=== PATIENT | female | born 1945 | race Caucasian/White ===

== ENCOUNTER 2018-01-07 16:56 | Emergency (ER) | payer MEDICARE, OTHER ==
[~2018-01-07] VITALS: Ht 160 cm; Wt 82.0 kg
[2018-01-07] MEDS ORDERED: diphenhydrAMINE 50 mg/ml inj IV ONE (17:35)
[2018-01-07] MEDS ORDERED: methylPREDNISolone sod succ 125mg/2ml vial IV ONE (17:35)
[2018-01-07 17:56] VITALS: BP 121/68
[2018-01-07 17:58] LABS: BASOPHILS % (AUTO) 0.5 % (0-1); EOSINOPHILS # (AUTO) 0.2 X10'3 (0-0.9); EOSINOPHILS % (AUTO) 3.8 % (0-6); HEMATOCRIT 38.5 % (35.0-45.0); HEMOGLOBIN 13.2 g/dl (12.0-16.0); LYMPHOCYTES # (AUTO) 1.9 X10'3 (1.1-4.8); LYMPHOCYTES % (AUTO) 29.9 % (21-51); MEAN CORPUSCULAR HEMOGLOBIN 31.8 PG (27.0-31.0); MEAN CORPUSCULAR HGB CONC 34.2 % (33.0-36.5); MEAN CORPUSCULAR VOLUME 92.8 FL (78-98); MEAN PLATELET VOLUME 9.2 FL (7.4-10.4); MONOCYTES # (AUTO) 0.5 X10'3 (0-0.9); MONOCYTES % (AUTO) 7.1 % (2-12); NEUTROPHILS # (AUTO) 3.8 X10'3 (1.8-7.7); NEUTROPHILS % (AUTO) 58.7 % (42-75); PLATELET COUNT 182 X10'3 (140-440); RED BLOOD COUNT 4.15 X10'6 (4.20-5.60); RED CELL DISTRIBUTION WIDTH 14.9 % (11.5-14.5); WHITE BLOOD COUNT 6.4 X10'3 (4.5-11.0)
[2018-01-07 18:08] LABS: ALANINE AMINOTRANSFERASE 50 U/L (12-78); ALBUMIN 3.3 G/DL (3.4-5.0); ALBUMIN/GLOBULIN RATIO 0.9 (1.1-1.5); ALKALINE PHOSPHATASE 57 IU/L (46-116); ANION GAP 10 (8-16); ASPARTATE AMINO TRANSFERASE 26 U/L (10-37); BILIRUBIN,TOTAL 0.2 MG/DL (0.1-1.0); BLOOD UREA NITROGEN 16 MG/DL (7-18); BUN/CREATININE RATIO 21.3 (6.6-38.0); CALCIUM 9.5 MG/DL (8.5-10.1); CHLORIDE 105 MMOL/L (99-107); CREATININE 0.75 MG/DL (0.40-0.90); GLUCOSE 88 MG/DL (70-104); POTASSIUM 3.8 MMOL/L (3.5-5.1); SODIUM 138 MMOL/L (135-145); TOTAL CARBON DIOXIDE 23.5 MMOL/L (24-32); TOTAL PROTEIN 6.9 G/DL (6.4-8.2); eGFR 76 ML/MIN
[2018-01-07] MEDS ORDERED: PRED10TA PO (19:12)
[2018-01-07] MEDS ORDERED: DIPH-423 PO (19:13)
== END 2018-01-07 19:28 | disposition home or self-care (01) ==
LOC: ER 16:57
DX: T78.40XA Allergy, unspecified, initial encounter (principal); I10 Essential (primary) hypertension; R06.02 Shortness of breath; R13.10 Dysphagia, unspecified; Z88.0 Allergy status to penicillin; Z79.899 Other long term (current) drug therapy; Z90.710 Acquired absence of both cervix and uterus; Z90.89 Acquired absence of other organs; X58.XXXA Exposure to other specified factors, initial encounter
CPT/HCPCS: 36415; 71045; 80053; 85025; 93005; 96374; 96375; 99285; J1200; J2930

== ENCOUNTER 2020-05-11 16:40 | Emergency (ER) | payer MEDICARE, OTHER ==
[~2020-05-11] VITALS: Ht 162.6 cm; Wt 79.0 kg
[~2020-05-11 16:40] MED LIST: DIPH-423 PO; PRED10TA PO
[2020-05-11] MEDS ORDERED: ondansetron 4mg rapidly disintigrating tab PO ONE (17:35)
[2020-05-11] MEDS ORDERED: HYDROcodone/acetaminophen 5mg/325mg tablet PO ONE (17:35)
[2020-05-11] MEDS ORDERED: ONDA4TAB6 PO (17:36)
[2020-05-11] MEDS ORDERED: HYDR-4383 PO (17:36)
[2020-05-11 18:04] VITALS: BP 113/41
== END 2020-05-11 18:10 | disposition home or self-care (01) ==
LOC: ER 16:41
DX: S82.832A Other fracture of upper and lower end of left fibula, initial encounter for closed fracture (principal); M25.572 Pain in left ankle and joints of left foot; I10 Essential (primary) hypertension; F32.9 Major depressive disorder, single episode, unspecified; Z90.710 Acquired absence of both cervix and uterus; Z90.89 Acquired absence of other organs; Z88.0 Allergy status to penicillin; Z88.8 Allergy status to other drugs, medicaments and biological substances; Z79.899 Other long term (current) drug therapy; X58.XXXA Exposure to other specified factors, initial encounter; Y93.89 Activity, other specified; Y92.89 Other specified places as the place of occurrence of the external cause; Y99.8 Other external cause status
CPT/HCPCS: 29515; 73610; 99283

== ENCOUNTER 2020-11-28 10:10 | Emergency (ER) | payer MEDICARE, OTHER ==
[~2020-11-28] VITALS: Ht 162.6 cm; Wt 76.7 kg
[~2020-11-28 10:10] MED LIST changes: +HYDR-4383 PO; +ONDA4TAB6 PO
[2020-11-28 10:54] LABS: BASOPHILS % (AUTO) 0.7 % (0-1); EOSINOPHILS # (AUTO) 0.1 X10'3 (0-0.9); HEMATOCRIT 39.5 % (35.0-45.0); HEMOGLOBIN 12.9 g/dl (12.0-16.0); LYMPHOCYTES # (AUTO) 1.2 X10'3 (1.1-4.8); LYMPHOCYTES % (AUTO) 20.4 % (21-51); MEAN CORPUSCULAR HEMOGLOBIN 28.9 PG (27.0-31.0); MEAN CORPUSCULAR HGB CONC 32.6 g/dL (33.0-36.5); MEAN CORPUSCULAR VOLUME 88.7 FL (78-98); MEAN PLATELET VOLUME 8.7 FL (7.4-10.4); MONOCYTES # (AUTO) 0.5 X10'3 (0-0.9); MONOCYTES % (AUTO) 9.1 % (2-12); NEUTROPHILS # (AUTO) 3.9 X10'3 (1.8-7.7); NEUTROPHILS % (AUTO) 67.8 % (42-75); PLATELET COUNT 223 X10'3 (140-440); RED BLOOD COUNT 4.45 X10'6 (4.20-5.60); RED CELL DISTRIBUTION WIDTH 18.3 % (11.5-14.5); WHITE BLOOD COUNT 5.7 X10'3 (4.5-11.0)
[2020-11-28 11:01] LABS: ALANINE AMINOTRANSFERASE 31 U/L (12-78); ALBUMIN 3.8 G/DL (3.4-5.0); BLOOD UREA NITROGEN 23 MG/DL (7-18); BUN/CREATININE RATIO 23.5 (6.6-38.0); CALCIUM 9.3 MG/DL (8.5-10.1); CREATININE 0.98 MG/DL (0.40-0.90); GLUCOSE 108 MG/DL (70-104); LIPASE 251 U/L (73-393); eGFR 55 ML/MIN
[2020-11-28 11:02] LABS: ALBUMIN/GLOBULIN RATIO 0.9 (1.1-1.5); ALKALINE PHOSPHATASE 69 IU/L (46-116); ANION GAP 7 (8-16); ASPARTATE AMINO TRANSFERASE 23 U/L (10-37); BILIRUBIN,TOTAL 0.3 MG/DL (0.1-1.0); CHLORIDE 103 MMOL/L (99-107); POTASSIUM 4.3 MMOL/L (3.5-5.1); SODIUM 138 MMOL/L (135-145); TOTAL CARBON DIOXIDE 28.1 MMOL/L (24-32); TOTAL PROTEIN 7.9 G/DL (6.4-8.2)
[2020-11-28] MEDS ORDERED: normal saline 1000ML IV soln IVB ONE (12:15)
[2020-11-28] MEDS ORDERED: ondansetron/PF 4mg/2ml inj IV ONE (12:15)
[2020-11-28] MEDS ORDERED: morphine 4 MG/ML inj SYRINge IV ONE (12:15)
--- NOTE | 2020-11-28 13:44 | NUR ---
DEREK SINGLETARY WOULD LIKE URINE SENT AND RESULTED PRIOR TO DISCHARGE
--- NOTE | 2020-11-28 13:46 | NUR ---
PATIENT TO AMBULATE TO BATHROOM FOR URINE SAMPLE, ADMITTING IN WITH PATIENT
[2020-11-28 14:50] LABS: CLARITY,URINE CLEAR (Clear); COLOR,URINE STRAW (Yellow); GLUCOSE, URINE NEGATIVE (Neg); KETONES,URINE NEGATIVE (Neg); LEUKOCYTE ESTERASE ,URINE NEGATIVE (Neg); NITRITES, URINE NEGATIVE (Neg); OCCULT BLOOD,URINE TRACE-INTACT (Neg); PROTEIN,URINE NEGATIVE (Neg); UA COLLECTION TYPE CLN CATCH MIDSTREAM; UROBILINOGEN,URINE 0.2 E.U/dL (0.2-1.0)
[2020-11-28 14:51] LABS: URINE HCG NEGATIVE (NEG)
[2020-11-28 14:59] LABS: SQUAMOUS EPITHELIAL CELL,UR MANY /LPF (FEW)
[2020-11-28 15:00] LABS: BACTERIA,URINE FEW /HPF (Neg); RBC,URINE 0-2 /HPF (0-2); WBC,URINE 0-4 /HPF (0-4)
[2020-11-28 15:35] VITALS: BP 148/68
== END 2020-11-28 15:39 | disposition home or self-care (01) ==
LOC: ER 10:10
DX: K59.00 Constipation, unspecified (principal); R10.32 Left lower quadrant pain; R11.2 Nausea with vomiting, unspecified; G25.81 Restless legs syndrome; I10 Essential (primary) hypertension; E11.9 Type 2 diabetes mellitus without complications; Z88.0 Allergy status to penicillin; Z91.041 Radiographic dye allergy status; Z79.899 Other long term (current) drug therapy; Z98.891 History of uterine scar from previous surgery; Z90.710 Acquired absence of both cervix and uterus; Z85.528 Personal history of other malignant neoplasm of kidney
CPT/HCPCS: 36415; 71045; 74176; 80053; 81001; 81025; 83690; 85025; 96361; 96374; 96375; 99285; J2270; J2405; J7030

== ENCOUNTER 2021-04-24 14:07 | Emergency (ER) | payer MEDICARE, OTHER ==
[~2021-04-24] VITALS: Ht 162.6 cm; Wt 78.2 kg
[2021-04-24 14:15] VITALS: BP 135/64
[2021-04-24] MEDS ORDERED: ketorolac trometh inj. 60 MG/2 ML VIAL IM ONE (15:35)
[2021-04-24] MEDS ORDERED: HYDROcodone/acetaminophen 5mg/325mg tablet PO ONE (15:35)
[2021-04-24] MEDS ORDERED: orphenadrine citrate 60mg/2ml inj. IM ONE (15:35)
[2021-04-24] MEDS ORDERED: HYDR-3965 PO (15:36)
[2021-04-24] MEDS ORDERED: METH4TAB3 PO (15:36)
[2021-04-24] MEDS ORDERED: ORPH100T2 PO (15:36)
== END 2021-04-24 16:19 | disposition home or self-care (01) ==
LOC: ER 14:08
DX: M54.16 Radiculopathy, lumbar region (principal); R20.0 Anesthesia of skin; R20.2 Paresthesia of skin; I10 Essential (primary) hypertension; E11.9 Type 2 diabetes mellitus without complications; Z85.9 Personal history of malignant neoplasm, unspecified; Z90.710 Acquired absence of both cervix and uterus; Z98.890 Other specified postprocedural states; Z88.0 Allergy status to penicillin; Z91.041 Radiographic dye allergy status; Z79.899 Other long term (current) drug therapy
CPT/HCPCS: 72100; 96372; 99284; J1885; J2360

== ENCOUNTER 2022-09-13 18:23 | Emergency (ER) | payer MEDICARE, OTHER ==
[~2022-09-13] VITALS: Ht 162.6 cm; Wt 69.5 kg
[~2022-09-13 18:23] MED LIST changes: +METH4TAB3 PO; +ORPH100T2 PO
[2022-09-13] MEDS ORDERED: acetaminophen 325mg tablet PO STA (18:57)
[2022-09-13 19:45] LABS: BASOPHILS % (AUTO) 0.2 % (0-1); EOSINOPHILS % (AUTO) 0.1 % (0-6); HEMATOCRIT 40.4 % (35.0-45.0); HEMOGLOBIN 13.7 g/dl (12.0-16.0); LYMPHOCYTES # (AUTO) 0.5 X10'3 (1.1-4.8); LYMPHOCYTES % (AUTO) 4.8 % (21-51); MEAN CORPUSCULAR HEMOGLOBIN 31.8 PG (27.0-31.0); MEAN CORPUSCULAR HGB CONC 33.9 g/dL (33.0-36.5); MEAN CORPUSCULAR VOLUME 93.7 FL (78-98); MEAN PLATELET VOLUME 9.4 FL (7.4-10.4); MONOCYTES # (AUTO) 0.5 X10'3 (0-0.9); MONOCYTES % (AUTO) 4.8 % (2-12); NEUTROPHILS # (AUTO) 8.8 X10'3 (1.8-7.7); NEUTROPHILS % (AUTO) 90.1 % (42-75); PLATELET COUNT 151 X10'3 (140-440); RED BLOOD COUNT 4.31 X10'6 (4.20-5.60); RED CELL DISTRIBUTION WIDTH 14.6 % (11.5-14.5); WHITE BLOOD COUNT 9.7 X10'3 (4.5-11.0)
[2022-09-13] MEDS ORDERED: normal saline 1000ml 1,000 ML IV ONE ×2 (19:50→20:50)
--- NOTE | 2022-09-13 19:58 | NUR ---
Pt urine sample not adequate. Physician aware. 1 L NS ordered. Will attempt to obtain sample.
[2022-09-13 19:59] LABS: ALANINE AMINOTRANSFERASE 32 U/L (12-78); ALKALINE PHOSPHATASE 85 IU/L (46-116); ANION GAP 11 (8-16); ASPARTATE AMINO TRANSFERASE 25 U/L (10-37); BILIRUBIN,TOTAL 0.3 MG/DL (0.1-1.0); BLOOD UREA NITROGEN 25 MG/DL (7-18); BUN/CREATININE RATIO 22.5 (10.0-20.0); CALCIUM 9.9 MG/DL (8.5-10.1); CHLORIDE 105 MMOL/L (99-107); CREATININE 1.11 MG/DL (0.40-0.90); GLUCOSE 113 MG/DL (70-104); SODIUM 142 MMOL/L (135-145); eGFR 48 ML/MIN
[2022-09-13 20:11] LABS: MAGNESIUM 1.9 MG/DL (1.5-2.4)
--- NOTE | 2022-09-13 20:17 | NUR ---
Pt's bp soft. Dr. Kumar aware. Pressure infuser applied to saline bag. Will continue to monitor.
--- NOTE | 2022-09-13 21:08 | NUR ---
Pt luigi. Dr. Kumar ok'd food for patient. Given yogurt and jello.
[2022-09-13 21:35] LABS: CLARITY,URINE SLIGHTLY CLOUDY (Clear); COLOR,URINE YELLOW (Yellow); GLUCOSE, URINE NEGATIVE (Neg); KETONES,URINE NEGATIVE (Neg); LEUKOCYTE ESTERASE ,URINE NEGATIVE (Neg); NITRITES, URINE NEGATIVE (Neg); OCCULT BLOOD,URINE SMALL (Neg); PH,URINE 5.5 (4.8-8.0); PROTEIN,URINE NEGATIVE (Neg); UROBILINOGEN,URINE 0.2 E.U/dL (0.2-1.0)
[2022-09-13 21:40] LABS: UA COLLECTION TYPE OTHER
[2022-09-13 21:41] LABS: COARSE GRANULAR CAST 0-3 /LPF (NEGATIVE); SQUAMOUS EPITHELIAL CELL,UR MANY /LPF (FEW)
[2022-09-13 21:42] LABS: BACTERIA,URINE FEW /HPF (Neg); TRANSITIONAL EPI CELLS,URINE FEW /HPF; WBC,URINE 0-4 /HPF (0-4)
[2022-09-13 22:00] VITALS: BP 105/42
== END 2022-09-13 23:09 | disposition home or self-care (01) ==
LOC: ER 18:23
DX: R53.1 Weakness (principal); Z20.822 Contact with and (suspected) exposure to COVID-19; R50.9 Fever, unspecified; I10 Essential (primary) hypertension; E11.9 Type 2 diabetes mellitus without complications; F32.A Depression, unspecified; Z88.0 Allergy status to penicillin; Z88.8 Allergy status to other drugs, medicaments and biological substances; W19.XXXA Unspecified fall, initial encounter; Y93.89 Activity, other specified; Y92.89 Other specified places as the place of occurrence of the external cause; Y99.8 Other external cause status
CPT/HCPCS: 36415; 71045; 80053; 81001; 82553; 83605; 83735; 84145; 84484; 85025; 87040; 87502; 87503; 87635; 93005; 96360; 99285; C9803; J7030

== ENCOUNTER 2022-09-14 23:50 | Emergency (ER) | payer MEDICARE, OTHER ==
[~2022-09-14] VITALS: Ht 162.6 cm; Wt 69.5 kg
--- NOTE | 2022-09-15 00:26 | NUR ---
RECIEVED REPORT FROM JANETTE LOFTON ASSUMING CARE OF PT. MONITOR LEADS ON AND FUNCTIONING IVF INFUSING.
[2022-09-15 01:36] LABS: BASOPHILS % (AUTO) 0.3 % (0-1); EOSINOPHILS % (AUTO) 0.3 % (0-6); HEMATOCRIT 31.8 % (35.0-45.0); HEMOGLOBIN 10.9 g/dl (12.0-16.0); LYMPHOCYTES # (AUTO) 1.4 X10'3 (1.1-4.8); LYMPHOCYTES % (AUTO) 15.8 % (21-51); MEAN CORPUSCULAR HEMOGLOBIN 32.3 PG (27.0-31.0); MEAN CORPUSCULAR HGB CONC 34.2 g/dL (33.0-36.5); MEAN CORPUSCULAR VOLUME 94.2 FL (78-98); MEAN PLATELET VOLUME 9.2 FL (7.4-10.4); MONOCYTES # (AUTO) 0.7 X10'3 (0-0.9); MONOCYTES % (AUTO) 8.6 % (2-12); NEUTROPHILS # (AUTO) 6.4 X10'3 (1.8-7.7); PLATELET COUNT 103 X10'3 (140-440); RED BLOOD COUNT 3.38 X10'6 (4.20-5.60); RED CELL DISTRIBUTION WIDTH 14.7 % (11.5-14.5); WHITE BLOOD COUNT 8.6 X10'3 (4.5-11.0)
[2022-09-15 01:41] LABS: ALANINE AMINOTRANSFERASE 39 U/L (12-78); ALBUMIN 2.7 G/DL (3.4-5.0); ALBUMIN/GLOBULIN RATIO 0.8 (1.1-1.5); ALKALINE PHOSPHATASE 63 IU/L (46-116); ANION GAP 8 (8-16); ASPARTATE AMINO TRANSFERASE 67 U/L (10-37); BILIRUBIN,TOTAL 0.4 MG/DL (0.1-1.0); BLOOD UREA NITROGEN 32 MG/DL (7-18); BUN/CREATININE RATIO 27.4 (10.0-20.0); CALCIUM 8.1 MG/DL (8.5-10.1); CHLORIDE 110 MMOL/L (99-107); CREATININE 1.17 MG/DL (0.40-0.90); GLUCOSE 111 MG/DL (70-104); POTASSIUM 3.5 MMOL/L (3.5-5.1); SODIUM 140 MMOL/L (135-145); TOTAL CARBON DIOXIDE 22.5 MMOL/L (24-32); eGFR 45 ML/MIN
[2022-09-15 01:43] LABS: C-REACTIVE PROTEIN 11.73 MG/DL (0.0-0.5); MAGNESIUM 1.7 MG/DL (1.5-2.4)
[2022-09-15] MEDS ORDERED: normal saline 1000ml 1,000 ML IV ONE (02:30)
[2022-09-15 03:03] LABS: ETHANOL < 0.010 GM/DL (0.0-0.010)
--- NOTE | 2022-09-15 03:34 | NUR ---
PT UP TO BR TO VOID CC UA COLLECTED LABELED AT BEDSIDE WITH PT'S VERBAL VERIFICATION TO CORRECT NAME AND . SPECIMEN SENT TO LAB. DURING ADMIN OF IVF #2 BAG DISCLOSED HE HAD GIVEN PT 1/2 TAB OF 5/325 MG NORCO APPROX. 20 MIN EARLIER. MD NOTIFIED PT AND EDUCATION THE POLICY OF ADMIN HOME MEDICATIONS IN HOSPITAL. BOTH PT AND ACKNOWLEDGED UNDERSTANDING.
[2022-09-15 04:29] LABS: CLARITY,URINE CLOUDY (Clear); COLOR,URINE YELLOW (Yellow); GLUCOSE, URINE NEGATIVE (Neg); KETONES,URINE NEGATIVE (Neg); NITRITES, URINE POSITIVE (Neg); OCCULT BLOOD,URINE TRACE-INTACT (Neg); PROTEIN,URINE NEGATIVE (Neg); UROBILINOGEN,URINE 0.2 E.U/dL (0.2-1.0)
[2022-09-15 04:30] LABS: LEUKOCYTE ESTERASE ,URINE MODERATE (Neg)
[2022-09-15 04:47] LABS: UA COLLECTION TYPE CLN CATCH MIDSTREAM
[2022-09-15 04:48] LABS: BACTERIA,URINE 3+ /HPF (Neg); RBC,URINE 0-2 /HPF (0-2); SQUAMOUS EPITHELIAL CELL,UR FEW /LPF (FEW); WBC CLUMPS,URINE MODERATE /HPF (NEGATIVE); WBC,URINE 50-100 /HPF (0-4)
[2022-09-15 05:00] LABS: URINE AMPHETAMINE SCREEN NEGATIVE (Neg); URINE BARBITUATE SCREEN NEGATIVE (Neg); URINE BENZODIAZEPINES SCREEN NEGATIVE (Neg); URINE CANNABINOID SCREEN NEGATIVE (Neg); URINE COCAINE SCREEN NEGATIVE (Neg); URINE METHADONE SCREEN NEGATIVE (Neg); URINE OPIATE SCREEN POSITIVE (Neg); URINE PHENCYCLIDINE SCREEN NEGATIVE (Neg)
[2022-09-15] MEDS ORDERED: CefTRIAXone/D5W-Rocephin 1gm 50 ML IV ONE (05:00)
[2022-09-15] MEDS ORDERED: CEPH-585 PO (05:02)
[2022-09-15 05:34] VITALS: BP 103/54
--- NOTE | 2022-09-15 05:37 | NUR ---
PT AMBULATED TO BR STEADY GAIT TO VOID PRIOR TO EXIT OUT OF UNIT
== END 2022-09-15 05:37 | disposition home or self-care (01) ==
LOC: ER 23:51
DX: N39.0 Urinary tract infection, site not specified (principal); Z20.822 Contact with and (suspected) exposure to COVID-19; R41.82 Altered mental status, unspecified; R50.9 Fever, unspecified; R41.0 Disorientation, unspecified; I10 Essential (primary) hypertension; E11.9 Type 2 diabetes mellitus without complications; F32.A Depression, unspecified; Z98.890 Other specified postprocedural states; Z88.0 Allergy status to penicillin; Z88.8 Allergy status to other drugs, medicaments and biological substances; Z79.899 Other long term (current) drug therapy
CPT/HCPCS: 36415; 70450; 71045; 71250; 74176; 80053; 80305; 80320; 81001; 83605; 83735; 84145; 84484; 85025; 85651; 86140; 87040; 87077; 87088; 87186; 87502; 87503; 87635; 93005; 96361; 96374; 99285; C9803; J0696; J7030; 96365

== ENCOUNTER 2022-11-29 09:02 | Emergency (ER) | payer OTHER, MEDICARE ==
[~2022-11-29] VITALS: Ht 162.6 cm; Wt 73.8 kg
[~2022-11-29 09:02] MED LIST changes: -ORPH100T2 PO; +ORPH100T4 PO
[2022-11-29 09:06] VITALS: BP 146/77
[2022-11-29] MEDS ORDERED: CLOB50SO2 TP (10:31)
== END 2022-11-29 10:46 | disposition home or self-care (01) ==
LOC: ER 09:02
DX: R21 Rash and other nonspecific skin eruption (principal); I10 Essential (primary) hypertension; E11.9 Type 2 diabetes mellitus without complications; F32.A Depression, unspecified; Z88.5 Allergy status to narcotic agent; Z88.0 Allergy status to penicillin; Z79.899 Other long term (current) drug therapy
CPT/HCPCS: 99283

== ENCOUNTER 2024-10-09 14:48 | Emergency (ER) | payer MEDICARE, OTHER ==
[~2024-10-09] VITALS: Ht 162.6 cm; Wt 74.3 kg
[~2024-10-09 14:48] MED LIST changes: +CLOB50SO2 TP
[2024-10-09 14:52] VITALS: TEMP 97.6
[2024-10-09] MEDS: methylPREDNISolone sod succ 125mg/2ml vial IV ONE (15:14)
[2024-10-09] MEDS: ipratropium/albuterol 3ml nebule NEB ONE (15:16)
[2024-10-09 15:17] VITALS: PULSE 79; RESP 16; O2SAT 96
[2024-10-09 15:24] VITALS: PULSE 74; RESP 15; O2SAT 97
[2024-10-09 15:36] LABS: BASOPHILS % (AUTO) 0.4 % (0-1); EOSINOPHILS # (AUTO) 0.7 X10'3 (0-0.9); HEMATOCRIT 39.9 % (35.0-45.0); HEMOGLOBIN 13.7 g/dl (12.0-16.0); LYMPHOCYTES # (AUTO) 1.3 X10'3 (1.1-4.8); MEAN CORPUSCULAR HEMOGLOBIN 32.2 PG (27.0-31.0); MEAN CORPUSCULAR HGB CONC 34.4 g/dL (33.0-36.5); MEAN CORPUSCULAR VOLUME 93.7 FL (78-98); MEAN PLATELET VOLUME 8.9 FL (7.4-10.4); MONOCYTES # (AUTO) 0.6 X10'3 (0-0.9); MONOCYTES % (AUTO) 6.5 % (2-12); NEUTROPHILS # (AUTO) 6.1 X10'3 (1.8-7.7); NEUTROPHILS % (AUTO) 70.1 % (42-75); PLATELET COUNT 182 X10'3 (140-440); RED BLOOD COUNT 4.26 X10'6 (4.20-5.60); RED CELL DISTRIBUTION WIDTH 14.1 % (11.5-14.5); WHITE BLOOD COUNT 8.7 X10'3 (4.5-11.0)
[2024-10-09 15:39] LABS: D-DIMER 0.28 MG/L FEU (0-0.50)
[2024-10-09 15:49] LABS: ALBUMIN 3.5 G/DL (3.4-5.0); ANION GAP 10 (8-16); BLOOD UREA NITROGEN 22 MG/DL (7-18); BUN/CREATININE RATIO 28.6 (10.0-20.0); CALCIUM 8.8 MG/DL (8.5-10.1); CHLORIDE 108 MMOL/L (99-107); CREATININE 0.77 MG/DL (0.40-0.90); GLUCOSE 164 MG/DL (70-104); POTASSIUM 3.9 MMOL/L (3.5-5.1); PRO BRAIN NATRIURETIC PEPTIDE < 30 PG/ML (0-450); SODIUM 143 MMOL/L (135-145); TOTAL CARBON DIOXIDE 24.9 MMOL/L (24-32); eCRCL 50 ML/MIN; eGFR 72 ML/MIN
[2024-10-09 16:08] LABS: RSV LAB CLEARVIEW AG NEGATIVE (NEGATIVE)
[2024-10-09] MEDS ORDERED: ALBU8HFA INH (17:37)
[2024-10-09] MEDS ORDERED: PRED20TA PO (17:37)
[2024-10-09 17:41] VITALS: BP 110/60; PULSE 66; RESP 16; O2SAT 96
[2024-10-09] MEDS ORDERED: DOXY-347 PO (17:44)
== END 2024-10-09 18:03 | disposition home or self-care (01) ==
LOC: ER 14:48
DX: J98.01 Acute bronchospasm (principal); Z20.822 Contact with and (suspected) exposure to COVID-19; Z88.0 Allergy status to penicillin; Z88.8 Allergy status to other drugs, medicaments and biological substances; Z90.710 Acquired absence of both cervix and uterus; Z91.041 Radiographic dye allergy status
CPT/HCPCS: 36415; 71046; 71250; 80048; 83605; 83880; 85025; 85379; 87040; 87502; 87503; 87811; 93005; 94640; 96374; 99285; A4615; J2919; 94760

== ENCOUNTER 2024-11-14 05:40 | Emergency (ER) | payer MEDICARE, OTHER ==
[~2024-11-14] VITALS: Ht 162.6 cm; Wt 72.7 kg
[2024-11-14 06:19] LABS: BILIRUBIN,URINE NEGATIVE (Neg); CLARITY,URINE CLEAR (Clear); COLOR,URINE YELLOW (Yellow); GLUCOSE, URINE NEGATIVE (Neg); KETONES,URINE NEGATIVE (Neg); LEUKOCYTE ESTERASE ,URINE TRACE (Neg); NITRITES, URINE NEGATIVE (Neg); OCCULT BLOOD,URINE NEGATIVE (Neg); PROTEIN,URINE NEGATIVE (Neg); UROBILINOGEN,URINE 0.2 E.U/dL (0.2-1.0)
[2024-11-14 06:26] LABS: UA COLLECTION TYPE CLN CATCH MIDSTREAM
[2024-11-14 06:28] LABS: BACTERIA,URINE NONE SEEN /HPF (Neg); RBC,URINE NONE SEEN /HPF (0-2); SQUAMOUS EPITHELIAL CELL,UR MANY /LPF (FEW); WBC,URINE 0-4 /HPF (0-4)
[2024-11-14 06:29] LABS: MUCUS STRANDS NONE SEEN /LPF (Neg)
[2024-11-14 07:44] LABS: BASOPHILS # (AUTO) 0.1 X10'3 (0-0.2); EOSINOPHILS # (AUTO) 0.2 X10'3 (0-0.9); EOSINOPHILS % (AUTO) 4.5 % (0-6); HEMATOCRIT 43.4 % (35.0-45.0); HEMOGLOBIN 14.3 g/dl (12.0-16.0); LYMPHOCYTES # (AUTO) 1.2 X10'3 (1.1-4.8); LYMPHOCYTES % (AUTO) 23.2 % (21-51); MEAN PLATELET VOLUME 9.5 FL (7.4-10.4); MONOCYTES # (AUTO) 0.4 X10'3 (0-0.9); NEUTROPHILS # (AUTO) 3.3 X10'3 (1.8-7.7); NEUTROPHILS % (AUTO) 63.3 % (42-75); PLATELET COUNT 213 X10'3 (140-440); RED BLOOD COUNT 4.62 X10'6 (4.20-5.60); RED CELL DISTRIBUTION WIDTH 14.4 % (11.5-14.5); WHITE BLOOD COUNT 5.3 X10'3 (4.5-11.0)
[2024-11-14 07:59] LABS: ALANINE AMINOTRANSFERASE 35 U/L (12-78); ALBUMIN 3.8 G/DL (3.4-5.0); ALKALINE PHOSPHATASE 100 IU/L (46-116); ANION GAP 7 (8-16); ASPARTATE AMINO TRANSFERASE 22 U/L (10-37); BILIRUBIN,TOTAL 0.3 MG/DL (0.1-1.0); BLOOD UREA NITROGEN 25 MG/DL (7-18); CALCIUM 10.3 MG/DL (8.5-10.1); CHLORIDE 105 MMOL/L (99-107); CREATININE 1.04 MG/DL (0.40-0.90); GLUCOSE 125 MG/DL (70-104); LIPASE 83 U/L (16-77); POTASSIUM 4.9 MMOL/L (3.5-5.1); SODIUM 138 MMOL/L (135-145); TOTAL CARBON DIOXIDE 26.3 MMOL/L (24-32); TOTAL PROTEIN 7.8 G/DL (6.4-8.2); eCRCL 37 ML/MIN; eGFR 51 ML/MIN
--- NOTE | 2024-11-14 10:30 | Physician Documentation ---
History of Present Illness Chief Complaint: Abdominal Pain Stated Complaint: LOWER RIGHT SIDE PAIN Time Seen by MD: 10:08 Primary Medical Doctor: Gabbi JACKSON 78-year-old female presenting with lower abdominal pain for the past week. The pain has been sharp, constant it has been gradually worsening. It is now severe and she states that it extends from the left side to the right side and radiates to her back. She has also had some mild constipation that resolved with prune juice. She has been very nauseated but no vomiting. Denies any fever or chills. States that she was recently diagnosed with a UTI as well and is on nitrofurantoin which she has been taking as prescribed. Medication Reconciliation Allergies: Coded Allergies: iodine (Verified Allergy, Intermediate, 11/28/20) Penicillins (Verified Allergy, Mild, 05/11/20) Scheduled Clobetasol Propionate (Clobetasol Propionate), 1 APPLIC TP DAILY Diphenhydramine Hcl (Benadryl), 25 MG PO Q6H PRN ITCHING Hydrocodone/Acetaminophen ([place] 5-325 Tablet), 1 TAB PO TID PRN Methylprednisolone (Medrol), 1 DOSPAK PO UD Ondansetron Hcl (Zofran), 1 TAB PO Q6H Prednisone (Prednisone), 0 PO DAILY Scheduled PRN Orphenadrine Citrate (Norflex), 1 TAB PO Q12H PRN PRN for muscle spasms Discontinued Medications albuterol inhaler (Pro-Air Inhaler), 2 PUFFS INH Q4HPRN PRN for wheezing Discontinued Reason: Auto Discontinued Past Medical History Past Medical History: No Pertinent History, Hypertension, Diabetes, *CANCER*, Depression Past Surgical History: cancer surgery, , hysterectomy, tonsillectomy Other Past Surgical History: 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 CONST: Well developed and well nourished. In no acute distress HENT: Head Atraumatic EYES: Pupils are equal, round and reactive to light. Normal conjunctiva NECK: Normal range of motion. Supple. CARDIO: Normal rate and regular rhythm. No murmurs, rubs, or gallops. S1, S2. PULM/CHEST: No respiratory distress. Lungs clear to auscultation. No wheeze ABD: Soft. Nondistended. Bowel sounds normal. No guarding. Tenderness to palpation over the left lower quadrant, suprapubic area and right lower quadrant : Exam deferred MSK: No edema. No deformity. NEURO: Alert and oriented to person, place and time. Moving all extremities SKIN: Warm and dry. PSYCH: Normal mood and affect. Good eye contact. Progress Results/Orders Results/Orders Orders - DUKE ALY MD Normal Saline 1,000ml Iv Bolus (11/14/24 10:30) Morphine 4mg/Ml Inj. (Morphine Inj.) (11/14/24 10:30) Ondansetron Inj. (Zofran 4mg/2ml Vial) (11/14/24 10:30) Vital Signs 11/14/24 05:42 Temp 97.6 Pulse 58 Resp 16 B/P (MAP) 165/66 Pulse Ox 98 O2 Flow Rate 0 Laboratory Tests Test 11/14/24 05:55 11/14/24 07:16 Urine Specimen Description Cln catch midstream Urine Color Yellow Urine Clarity Clear Urine pH 6.0 Urine Specific [place] 1.020 Urine Protein Negative Urine Glucose (UA) Negative Urine Ketones Negative Urine Occult Blood Negative Urine Nitrite Negative Urine Bilirubin Negative Urine Urobilinogen 0.2 Urine Leukocyte Esterase Trace H Urine RBC None seen Urine WBC 0-4 Urine Squamous Epithelial Cells Many Urine Bacteria None seen Urine Mucus None seen Urine Culture Indicated Rejected for culture Volume Urine Centrifuged 10 ml Urine Comment White Blood Count 5.3 Red Blood Count 4.62 Hemoglobin 14.3 Hematocrit 43.4 Mean Corpuscular Volume 94.0 Mean Corpuscular Hemoglobin 31.0 Mean Corpuscular Hemoglobin Concent 33.0 Red Cell Distribution Width 14.4 Platelet Count 213 Mean Platelet Volume 9.5 Neutrophils (%) (Auto) 63.3 Lymphocytes (%) (Auto) 23.2 Monocytes (%) (Auto) 8.0 Eosinophils (%) (Auto) 4.5 Basophils (%) (Auto) 1.0 Neutrophils # (Auto) 3.3 Lymphocytes # (Auto) 1.2 Monocytes # (Auto) 0.4 Eosinophils # (Auto) 0.2 Basophils # (Auto) 0.1 CBC Comment Sodium Level 138 Potassium Level 4.9 Chloride Level 105 Carbon Dioxide Level 26.3 Anion Gap 7 L Blood Urea Nitrogen 25 H Creatinine 1.04 H Estimated GFR/1.73 m2 51 BUN/Creatinine Ratio 24.0 H Glucose Level 125 H Calcium Level 10.3 H Total Bilirubin 0.3 Aspartate Amino Transf (AST/SGOT) 22 Alanine Aminotransferase (ALT/SGPT) 35 Alkaline Phosphatase 100 Total Protein 7.8 Albumin 3.8 Globulin 4.0 Albumin/Globulin Ratio 1.0 L Lipase 83 H Chemistry Comments EKG/XRAY/CT/US/VASC/MRI EKG : Additional Comment EKG as interpreted by ED MD shows normal sinus rhythm with no ST elevations, normal axis, [address] : Impression Exam: CT CT ABDOMEN PELVIS History: lower abd pain- assess for diverticulitis Comparison Study: CT CHEST ABDOMEN PELVIS on DOS: 09/15/22, CT ABDOMEN PELVIS on DOS: 11/28/20 Technique: Multidetector spiral CT of the abdomen was performed from lung bases to pubic symphysis. Imaging was performed without IV contrast. Axial, coronal and sagittal multiplanar reformats were obtained from the axial data set by the technologist. Radiation Dose : 1. Abdomen/Pelvis: CTDIvol 23.3 mGy, DLP 1092 mGy*cm. Findings: Evaluation of solid organs is limited due to lack of intravenous contrast use. Lung Bases: No acute or significant lung base finding. Normal heart size. No pleural or pericardial effusion. Liver: The liver is normal in size. No focal lesions. Gallbladder and Biliary Tree: Unremarkable Spleen: Unremarkable Pancreas: The pancreas is grossly normal in appearance. Adrenal Glands: Unremarkable Kidneys: Kidneys are grossly normal without calculi or hydronephrosis. Bladder: Grossly unremarkable for degree of distention. Bowel: The stomach is grossly normal in appearance. Small bowel and colon are normal in caliber and distribution. The appendix is not visualized; however, no secondary findings of acute appendicitis identified. Ascites: Absent Lymphadenopathy: No mesenteric, retroperitoneal or periportal lymphadenopathy. Abdominal Wall and Mesentery: Trace fat containing umbilical hernia Vasculature: The visualized abdominal aorta is normal in size and caliber. Evaluation of abdominal and pelvic vessels is limited due to lack of intravenous contrast. Pelvic Organs: Unremarkable Musculoskeletal: No aggressive focal bony lesions, acute fractures or dislocation. IMPRESSION: 1. No acute abdominal or pelvic findings. 2. Trace fat containing umbilical hernia Radiation optimization: All CT scans at this facility use at least one of these dose optimization techniques: automated exposure control mA and/or kV adjustment per patient size (includes targeted exams where dose is matched to clinical indication) or iterative reconstruction. Medical Decision Making Additional Comments 78-year-old female presenting with acute abdominal pain. Lab workup was unremarkable. CT of the abdomen and pelvis was unremarkable aside from a slight fat containing hernia which is chronic for the patient. Patient was medicated for pain with 4 mg of IV morphine as well as given 1 L of IV normal saline and 4 mg of IV Zofran. This helped resolve her symptoms. Patient has been taking nitrofurantoin for a UTI. Urinalysis did still show trace leukocytes. I suspect that this has not fully treated her UTI and she may have developed some cystitis at this time. I will go ahead and switch her antibiotics from nitrofurantoin to ciprofloxacin. I advised the patient to take this new medication. Drink plenty of fluids. Monitor for improvement and resolution. Follow up with PCP in the next 2-3 days and return to the ED with any acutely worsening symptoms. Departure Disposition: 01 HOME / SELF CARE / HOMELESS Impression: Primary Impression: Cystitis Additional Impression: Abdominal pain Condition: Improved Discharge Instructions: Urinary Tract Infection, Adult, Abdominal Pain, Women Additional Instructions: Please take this new antibiotic as prescribed. Stop using the old antibiotic. Drink plenty of fluids. Monitor symptoms for resolution. Follow up with your primary care physician and return to the ED with any acutely worsening symptoms. Referrals: NO PRIMARY CARE PROVIDER (PCP) Prescriptions Ciprofloxacin Hcl (Ciprofloxacin Hcl) 500 Mg Tablet 1 TAB PO Q12H for 7 Days, #14 TAB Prov: DUKE ALY MD 11/14/24 Signature Scribe Signature: 1 Attestation: 1 DUKE ALY MD November 14, 2024 10:30
--- NOTE | 2024-11-14 10:32 | ELECTROCARDIOGRAPH REPORT ---
[facility] Test Date: 2024-11-14 Test Time: 10:29:09 Pat Name: ELBERT GODINEZ Department: [facility]- Patient ID: [facility]-[id number] Room: Gender: F Furniture Manager: : 1945 Requested By: ARTEMIO THURMAN Order Number: [id number] Reading MD: Measurements Intervals [place] Rate: 60 P: 22 MI: 193 QRS: -13 QRSD: 98 T: 29 QT: 415 QTc: 415 Interpretive Statements Sinus rhythm Inferior infarct, old Minimal ST elevation, anterior leads Please click the below link to view image of tracing.
--- NOTE | 2024-11-14 10:33 | RADIOLOGY REPORT ---
DI CHEST,SINGLE VIEW, HISTORY: sepsis COMPARISON: CHEST,SINGLE VIEW on DOS: 09/15/22, CHEST,SINGLE VIEW on DOS: 09/13/22, CHEST,SINGLE VIEW o n DOS: 11/28/20 CHEST,SINGLE VIEW on DOS: 09/15/22, CHEST,SINGLE VIEW on DOS: 09/13/22, CHEST,SINGLE VIEW on DOS: 1 TECHNICAL DATA: 1 view of the chest was obtained. FINDINGS: Lines and tubes: None Cardiomediastinal silhouette: normal Pulmonary vasculature: normal Lung expansion: normal Lung airspace: normal Lung interstitium: normal Pleura: normal Pneumothorax: no Bones: Unremarkable Other: no IMPRESSION: No acute intrathoracic abnormality.
[2024-11-14 10:52] LABS: BASOPHILS % (AUTO) 0.8 % (0-1); EOSINOPHILS # (AUTO) 0.2 X10'3 (0-0.9); EOSINOPHILS % (AUTO) 3.2 % (0-6); HEMOGLOBIN 14.1 g/dl (12.0-16.0); LYMPHOCYTES # (AUTO) 1.2 X10'3 (1.1-4.8); LYMPHOCYTES % (AUTO) 18.7 % (21-51); MEAN CORPUSCULAR HEMOGLOBIN 31.5 PG (27.0-31.0); MEAN CORPUSCULAR HGB CONC 33.7 g/dL (33.0-36.5); MEAN CORPUSCULAR VOLUME 93.5 FL (78-98); MEAN PLATELET VOLUME 9.4 FL (7.4-10.4); MONOCYTES # (AUTO) 0.5 X10'3 (0-0.9); MONOCYTES % (AUTO) 7.5 % (2-12); NEUTROPHILS # (AUTO) 4.4 X10'3 (1.8-7.7); NEUTROPHILS % (AUTO) 69.8 % (42-75); PLATELET COUNT 204 X10'3 (140-440); RED BLOOD COUNT 4.49 X10'6 (4.20-5.60); RED CELL DISTRIBUTION WIDTH 14.2 % (11.5-14.5); WHITE BLOOD COUNT 6.3 X10'3 (4.5-11.0)
[2024-11-14 10:59] LABS: APTT 28 SECONDS (22-32); PROTHROMBIN TIME 10.7 SECONDS (9.0-12.0)
[2024-11-14 11:10] LABS: FREE T4 (FREE THYROXINE) 0.74 NG/DL (0.73-1.40); PRO BRAIN NATRIURETIC PEPTIDE < 30 PG/ML (0-450); THYROID STIMULATING HORMONE 1.89 ulU/ml (0.34-4.50)
[2024-11-14] MEDS: ondansetron/PF 4mg/2ml inj IV ONE (11:46)
[2024-11-14] MEDS: morphine 4 MG/ML inj SYRINge IV ONE (11:46)
[2024-11-14] MEDS: normal saline 1000ml 1,000 ML IV ONE (11:46)
--- NOTE | 2024-11-14 12:46 | RADIOLOGY REPORT ---
Exam: CT CT ABDOMEN PELVIS History: lower abd pain- assess for diverticulitis Comparison Study: CT CHEST ABDOMEN PELVIS on DOS: 09/15/22, CT ABDOMEN PELVIS on DOS: 11/28/20 Technique: Multidetector spiral CT of the abdomen was performed from lung bases to pubic symphysis. Imaging was performed without IV contrast. Axial, coronal and sagittal multiplanar reformats were ob tained from the axial data set by the technologist. Radiation Dose : 1. Abdomen/Pelvis: CTDIvol 23.3 mGy, DLP 1092 mGy*cm. Findings: Evaluation of solid organs is limited due to lack of intravenous contrast use. Lung Bases: No acute or significant lung base finding. Normal heart size. No pleural or pericardial effusion. Liver: The liver is normal in size. No focal lesions. Gallbladder and Biliary Tree: Unremarkable Spleen: Unremarkable Pancreas: The pancreas is grossly normal in appearance. Adrenal Glands: Unremarkable Kidneys: Kidneys are grossly normal without calculi or hydronephrosis. Bladder: Grossly unremarkable for degree of distention. Bowel: The stomach is grossly normal in appearance. Small bowel and colon are normal in caliber and d istribution. The appendix is not visualized; however, no secondary findings of acute appendicitis id entified. Ascites: Absent Lymphadenopathy: No mesenteric, retroperitoneal or periportal lymphadenopathy. Abdominal Wall and Mesentery: Trace fat containing umbilical hernia Vasculature: The visualized abdominal aorta is normal in size and caliber. Evaluation of abdominal a nd pelvic vessels is limited due to lack of intravenous contrast. Pelvic Organs: Unremarkable Musculoskeletal: No aggressive focal bony lesions, acute fractures or dislocation. IMPRESSION: 1. No acute abdominal or pelvic findings. 2. Trace fat containing umbilical hernia Radiation optimization: All CT scans at this facility use at least one of these dose optimization millicent hniques: automated exposure control mA and/or kV adjustment per patient size (includes targeted exam s where dose is matched to clinical indication) or iterative reconstruction.
[2024-11-14] MEDS ORDERED: CIPR-546 PO (14:02)
[2024-11-14 14:22] VITALS: BP 129/68; PULSE 67; RESP 18; O2SAT 100
[2024-11-14 14:23] VITALS: TEMP 97.6
== END 2024-11-14 14:31 | disposition home or self-care (01) ==
LOC: ER 05:40
DX: N30.90 Cystitis, unspecified without hematuria (principal); F32.A Depression, unspecified; Z88.0 Allergy status to penicillin; Z88.8 Allergy status to other drugs, medicaments and biological substances; Z90.710 Acquired absence of both cervix and uterus; Z91.041 Radiographic dye allergy status
CPT/HCPCS: 36415; 71045; 74176; 80053; 81001; 83605; 83690; 83880; 84145; 84439; 84443; 84484; 85025; 85610; 85730; 87040; 93005; 96374; 96375; 99285; J2270; J2405; J7030

== ENCOUNTER 2025-05-10 15:28 | Emergency (ER) | payer MEDICARE, OTHER ==
[~2025-05-10] VITALS: Ht 160 cm; Wt 56.0 kg
--- NOTE | 2025-05-10 15:42 | Physician Documentation ---
History of Present Illness General Chief Complaint: Mechanical Fall Stated Complaint: FALL Time Seen by MD: 15:42 Primary Medical Doctor: Gabbi History of Present Illness Initial Comments 79-year-old female states she feels like she got her foot caught on a shopping cart and fell striking her head. The patient states she felt proximally an hour ago. The patient had bleeding from the posterior portion of her scalp. She does complain of some slight neck pain. She had no loss of consciousness. She is not on any blood thinners. The patient denies any other injury. Patient denies any nausea or vomiting for recent illness Medication Reconciliation Allergies: Coded Allergies: iodine (Verified Allergy, Intermediate, 11/28/20) Penicillins (Verified Allergy, Mild, 05/11/20) Scheduled Clobetasol Propionate (Clobetasol Propionate), 1 APPLIC TP DAILY Diphenhydramine Hcl (Benadryl), 25 MG PO Q6H PRN ITCHING Hydrocodone/Acetaminophen ([place] 5-325 Tablet), 1 TAB PO TID PRN Methylprednisolone (Medrol), 1 DOSPAK PO UD Ondansetron Hcl (Zofran), 1 TAB PO Q6H Prednisone (Prednisone), 0 PO DAILY Scheduled PRN Orphenadrine Citrate (Norflex), 1 TAB PO Q12H PRN PRN for muscle spasms Past Medical History Past Medical History: Hypertension, Diabetes, *CANCER*, Depression Past Surgical History: cancer surgery, , hysterectomy, tonsillectomy Other Past Surgical History: 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 GENERAL: Alert, no apparent distress. HEENT: Normocephalic, atraumatic, PERRL, EOMI, dry mucosa, no erythema slight C4-C5 region right paraspinal neck tenderness RESPIRATORY: Lungs clear, normal breath sounds, no respiratory distress. CHEST: No accessory muscle use, no retractions CV: Regular rate, rhythm, no edema, no murmur, No: JVD GI: Soft, non-tender, bowels sounds present, no rebound, guarding, or rigidity BACK: No CVA tenderness, or swelling MUSCULOSKELETAL: No deformities, no edema SKIN: Warm and dry, no rash 5 cm occipital laceration no active bleeding no surrounding swelling or erythema NEURO: Oriented x4, No motor or sensory deficit PSYCH: Normal mood and affect, no agitation Progress Results/Orders Results/Orders Orders - FARHAT DANG MD Ct Head (05/10/25 16:10) Ct Cervical Spine (05/10/25 16:15) Laceration/I&D Tray Set Up (05/10/25 15:55) General Nursing Order (05/10/25 15:55) Chest,Two Views (05/10/25 17:09) Completed Orders - FARHAT DANG MD Ct Head (05/10/25 16:10) Ct Cervical Spine (05/10/25 16:15) Lidocaine 1% W/Epi 1:100,000 (Xylocaine (05/10/25 15:55) Chest,Two Views (05/10/25 17:09) Vital Signs 05/10/25 15:37 Temp 98.2 Pulse 69 Resp 18 B/P (MAP) 125/61 Pulse Ox 98 O2 Flow Rate 0 EKG/XRAY/CT/US/VASC/MRI Chest X-Ray : Additional Comments Patient: ELBERT GODINEZ Medical Record: [id number] [facility] : 1945, Age: 79 Sex: Female Location: ER Patient Status: REG ER Service Date/Time: 05/10/251708 Ordering Physician: FARHAT DANG MD Exam: CHEST,TWO VIEWS CHEST RADIOGRAPH Indication: abnormal findings on cervical spine Technique: Two views of the chest was obtained. Comparison: DI CHEST,SINGLE VIEW on DOS: 11/14/24 Findings: Mild pulmonary vascular congestion. No significant pleural effusion. No pneumothorax. Stable cardiomediastinal silhouette. IMPRESSION: Mild pulmonary vascular congestion. Electronically Signed by:HITESH VILLALTA MD Date & Time: 05/10/251714 Dictated by: HITESH VILLALTA MD Dictation date and time: 05/10/251704 Primary Care Provider: NO PRIMARY CARE PROVIDER cc: FARHAT DANG MD ~ CT : Impression atient: ELBERT GODINEZ Medical Record: [id number] [facility] : 1945, Age: 79 Sex: Female Location: ER Patient Status: REG ER Service Date/Time: 05/10/251614 Ordering Physician: FARHAT DANG MD Exam: CT CERVICAL SPINE EXAM: CT CT CERVICAL SPINE INDICATION: fall head injury EXAM DATE: 05/10/2025 04:03 PM COMPARISON: None TECHNIQUE: Noncontrast axial CT images of the cervical spine were performed. Sagittal and coronal reformatted images were obtained. Radiation optimization: All CT scans at this facility use at least one of these dose optimization techniques: automated exposure control mA and/or kV adjustment per patient size (includes targeted exams where dose is matched to clinical indication) or iterative reconstruction. Radiation Dose Information: CT Dose: CTDI volume is 20.73 mGy. Dose-length product is 526.02 mGy*cm. FINDINGS: No fractures are identified about the cervical spine. 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 There is slight reversal of normal cervical lordosis. There is advanced degenerative disc disease and facet arthropathy. There is [id number] spinal canal stenosis at C3-C4; mild spinal canal stenosis at C2-C3, C4-C5, and C5-C6. There is significant neural foraminal stenosis at C3-C4 on the left, C4-C5 bilaterally, C5-C6 on the right, C6-C7 on the right, C7-T1 on the right. There is partial opacification of the bilateral maxillary sinuses, not fully imaged here. There are atherosclerotic calcifications of the left carotid bulb. There are ground-glass opacities in the right upper lobe. There is a right upper lobe 8 mm noncalcified pulmonary nodule (image 12, series 2). There is a calcified granuloma in the right upper lobe. IMPRESSION: 1. No fracture of the cervical spine. 2. 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 Recommend follow-up outpatient noncontrast MRI of the cervical spine for better characterization as there may be mass effect on the cervical spinal cord at multiple levels. 3. Advanced degenerative disc disease and facet arthropathy with multilevel significant neural foraminal stenosis as detailed above. This would also be better characterized with noncontrast MRI on an outpatient basis. 4. Bilateral maxillary sinus disease. The paranasal sinuses are not fully imaged here. 5. Right upper lobe hazy opacities may be due to pneumonia, CHF, or other etiology. The chest is not fully imaged here. 6. Right upper lobe 8 mm noncalcified pulmonary nodule. Recommend follow-up outpatient CT scan of the chest for better characterization, with follow-up according to Fleischner society guidelines. Electronically Signed by:HYACINTH SOUZA MD Date & Time: 05/10/251648 Dictated by: HYACINTH SOUZA MD Dictation date and time: 05/10/251648 Primary Care Provider: NO PRIMARY CARE PROVIDER cc: FARHAT DANG MD ~ Patient: ELBERT GODINEZ Medical Record: [id number] [facility] : 1945, Age: 79 Sex: Female Location: ER Patient Status: [facility] ER Service Date/Time: 05/10/251609 Ordering Physician: FARHAT DANG MD Exam: CT HEAD EXAM: CT CT HEAD INDICATION: fall head injury TECHNIQUE: CT images of the head were obtained without administration of IV contrast. CT scans at this facility use dose modulation, iterative reconstruction, and/or weight based dosing when appropriate to reduce radiation dose to as low as reasonably achievable. COMPARISON: CT HEAD on DOS: 09/15/22 FINDINGS: PARENCHYMA: No acute hemorrhage. There is no mass effect, midline shift, or herniation. There is preservation of the cunningham white differentiation. Mild scattered hypoattenuation along the periventricular, centrum semiovale, and deep white matter tracts, which are nonspecific however statistically most likely represent chronic microvascular ischemic change. VENTRICLES: No hydrocephalus. EXTRA-AXIAL SPACES: No extra-axial fluid collections. OTHER: The bony structures are intact. Mild scattered paranasal sinus mucosal thickening. suspected acute air-fluid level of the left maxillary sinus. Degenerative change of bilateral temporomandibular joints. IMPRESSION: 1. No CT evidence of an acute intracranial abnormality. Electronically Signed by:TRENTON VARGAS MD Date & Time: 05/10/251647 Dictated by: TRENTON VARGAS MD Dictation date and time: 05/10/251647 Primary Care Provider: NO PRIMARY CARE PROVIDER cc: FARHAT DANG MD ~ Medical Decision Making Findings The patient was verbally consented for laceration repair, 5 cc of 1% lidocaine with epinephrine was infiltrated into her 5 cm occipital scalp laceration the w ound was cleansed with saline irrigation and the patient had five 4-0 simple interrupted sutures placed to reapproximate the wound the sutures were Vicryl they are absorbable. The patient tolerated the procedure well she has otherwise got a benign exam her CT head and neck were reviewed by me and I did not appreciate any intracranial mass any intracranial hemorrhage or bony abnorm alities in the head CTA interpreted as showing no acute disease process in the CT of the neck also failed to demonstrate any dislocation or fracture or significant soft tissue swelling and I interpreted that as negative as well I have reviewed the radiologist's interpretation the patient has a absorbable stitches she will be advised to follow up as an outpatient for any complications but otherwise the sutures are dissolvable. Departure Time of Disposition: 17:14 Disposition: 01 HOME / SELF CARE / HOMELESS Impression: Primary Impression: Fall Qualified Codes: W19.XXXA - Unspecified fall, initial encounter Additional Impressions: Scalp laceration Qualified Codes: S01.01XA - Laceration without foreign body of scalp, initial encounter Pulmonary nodules Discharge Instructions: Fall Prevention in the Home, Adult, [id number], Laceration Care, Adult Additional Instructions: Use Tylenol or ibuprofen for pain, your sutures are dissolvable, return for worsening of your symptoms. Follow up with your solar design engineer and your primary care provider as needed. Referrals: NO PRIMARY CARE PROVIDER (PCP) FARHAT DANG MD May 10, 2025 15:42
[2025-05-10] MEDS: LIDOcaine 1% W/epiNEPHrine 1:100,000 20ml vial IJ ONE (16:04)
--- NOTE | 2025-05-10 16:50 | RADIOLOGY REPORT ---
EXAM: CT CT HEAD INDICATION: fall head injury TECHNIQUE: CT images of the head were obtained without administration of IV contrast. CT scans at this facility use dose modulation, iterative reconstruction, and/or weight based dosing when appropriate to reduce radiation dose to as low as reasonably achievable. COMPARISON: CT HEAD on DOS: 09/15/22 FINDINGS: PARENCHYMA: No acute hemorrhage. There is no mass effect, midline shift, or herniation. There is preservation of the cunningham white differentiation. Mild scattered hypoattenuation along the periventricular, centrum semiovale, and deep white matter tracts, which are nonspecific however statistically most likely represent chronic microvascular ischemic change. VENTRICLES: No hydrocephalus. EXTRA-AXIAL SPACES: No extra-axial fluid collections. OTHER: The bony structures are intact. Mild scattered paranasal sinus mucosal thickening. suspected acute air-fluid level of the left maxillary sinus. Degenerative change of bilateral temporomandibular joints. IMPRESSION: 1. No CT evidence of an acute intracranial abnormality.
--- NOTE | 2025-05-10 16:51 | RADIOLOGY REPORT ---
EXAM: CT CT CERVICAL SPINE INDICATION: fall head injury EXAM DATE: 05/10/2025 04:03 PM COMPARISON: None TECHNIQUE: Noncontrast axial CT images of the cervical spine were performed. Sagittal and coronal reformatted images were obtained. Radiation optimization: All CT scans at this facility use at least one of these dose optimization techniques: automated exposure control mA and/or kV adjustment per patient size (includes targeted exams where dose is matched to clinical indication) or iterative reconstruction. Radiation Dose Information: CT Dose: CTDI volume is 20.73 mGy. Dose-length product is 526.02 mGy*cm. FINDINGS: No fractures are identified about the cervical spine. 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 There is slight reversal of normal cervical lordosis. There is advanced degenerative disc disease and facet arthropathy. There is [id number] spinal canal stenosis at C3-C4; mild spinal canal stenosis at C2-C3, C4-C5, and C5-C6. There is significant neural foraminal stenosis at C3-C4 on the left, C4-C5 bilaterally, C5-C6 on the right, C6-C7 on the right, C7-T1 on the right. There is partial opacification of the bilateral maxillary sinuses, not fully imaged here. There are atherosclerotic calcifications of the left carotid bulb. There are ground-glass opacities in the right upper lobe. There is a right upper lobe 8 mm noncalcified pulmonary nodule (image 12, series 2). There is a calcified granuloma in the right upper lobe. IMPRESSION: 1. No fracture of the cervical spine. 2. 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 Recommend follow-up outpatient noncontrast MRI of the cervical spine for better characterization as there may be mass effect on the cervical spinal cord at multiple levels. 3. Advanced degenerative disc disease and facet arthropathy with multilevel significant neural foraminal stenosis as detailed above. This would also be better characterized with noncontrast MRI on an outpatient basis. 4. Bilateral maxillary sinus disease. The paranasal sinuses are not fully imaged here. 5. Right upper lobe hazy opacities may be due to pneumonia, CHF, or other etiology. The chest is not fully imaged here. 6. Right upper lobe 8 mm noncalcified pulmonary nodule. Recommend follow-up outpatient CT scan of the chest for better characterization, with follow-up according to Fleischner society guidelines.
--- NOTE | 2025-05-10 17:17 | RADIOLOGY REPORT ---
CHEST RADIOGRAPH Indication: abnormal findings on cervical spine Technique: Two views of the chest was obtained. Comparison: DI CHEST,SINGLE VIEW on DOS: 11/14/24 Findings: Mild pulmonary vascular congestion. No significant pleural effusion. No pneumothorax. Stable cardiomediastinal silhouette. IMPRESSION: Mild pulmonary vascular congestion.
[2025-05-10 17:21] VITALS: BP 120/80; PULSE 70; RESP 16; TEMP 98; O2SAT 98
== END 2025-05-10 17:23 | disposition home or self-care (01) ==
LOC: ER 15:29
DX: S01.01XA Laceration without foreign body of scalp, initial encounter (principal); R91.8 Other nonspecific abnormal finding of lung field; E11.9 Type 2 diabetes mellitus without complications; I10 Essential (primary) hypertension; F32.A Depression, unspecified; Z88.0 Allergy status to penicillin; Z90.710 Acquired absence of both cervix and uterus; Z79.899 Other long term (current) drug therapy; Z98.890 Other specified postprocedural states; W18.39XA Other fall on same level, initial encounter; Y93.89 Activity, other specified; Y92.89 Other specified places as the place of occurrence of the external cause; Y99.8 Other external cause status
CPT/HCPCS: 12002; 70450; 71046; 72125; 99284; A6402; Z7610; A6449